=== PATIENT | female | born 1995 | race Caucasian/White ===

== ENCOUNTER 2023-09-22 12:14 | Emergency (ER) | payer MEDICAID ==
[~2023-09-22] VITALS: Ht 167.6 cm; Wt 57.9 kg
[2023-09-22 13:55] VITALS: BP 140/101; PULSE 118; RESP 16; TEMP 97.6; O2SAT 95
[2023-09-22] MEDS ORDERED: AMOX875T3 PO (14:24)
[2023-09-22] MEDS ORDERED: IBUP-1454 PO (14:24)
[2023-09-22] MEDS ORDERED: TOB03OS OP (14:24)
== END 2023-09-22 14:32 | disposition home or self-care (01) ==
LOC: ER 12:14
DX: H66.91 Otitis media, unspecified, right ear (principal); H10.32 Unspecified acute conjunctivitis, left eye